=== PATIENT | male | born 1985 | race Hispanic/Latino ===

== ENCOUNTER 2022-07-23 10:26 | Day surgery (SDC) | payer BC ==
[2022-07-22 11:53] VITALS: BMI 32.8
[2022-07-23] MEDS ORDERED: Heparin 10,000 UNITS/ 10 ML VIAL ONE (11:04)
[2022-07-23] MEDS ORDERED: Protamine Sulfate 50 MG/5 ML VIAL ONE (11:04)
[2022-07-23] MEDS ORDERED: Heparin 25,000 units/D5W 500 ML ONE (11:04)
[2022-07-23] MEDS ORDERED: Fentanyl 250 MCG/5 ML VIAL ONE (12:55)
[2022-07-23] MEDS ORDERED: Midazolam HCl 2 mg/2 ml Vial ONE (12:55)
[2022-07-23] MEDS ORDERED: Ondansetron PF 4 MG/2 ML Vial ONE (13:11)
[2022-07-23] MEDS ORDERED: NEOSTIGMINE 3 MG/3 ML SYR 3 MG/3 ML SYRINGE ONE (13:11)
[2022-07-23] MEDS ORDERED: GLYCOPYRROLATE/PF 0.2 MG/ML VIAL ONE (13:11)
[2022-07-23] MEDS ORDERED: PROPOFOL 200 MG/20 ML VIAL ONE (13:11)
[2022-07-23] MEDS ORDERED: Rocuronium Bromide 10 MG/ML (10ML VIAL) ONE (13:11)
[2022-07-23] MEDS ORDERED: Dexamethasone 20 MG/5 ML VIAL ONE (13:11)
== END 2022-07-23 19:55 | disposition home or self-care (01) ==
LOC: SDC 10:26
PROVIDERS: ATTEND Internal Medicine Cardiovascular Disease
DX: I48.0 Paroxysmal atrial fibrillation (principal); Z86.16 Personal history of COVID-19; Z79.01 Long term (current) use of anticoagulants; Z79.82 Long term (current) use of aspirin; Z79.899 Other long term (current) drug therapy
CPT/HCPCS: 85347; 93005; 93010; 93312; 93656; C1732; C1759; C1760; C1769; C1894; C2630; J1100; J1644; J2250; J2405; J2704; J2720; J3010; J3490